=== PATIENT | female | born 1975 | race African-American/Black ===

== ENCOUNTER 2020-02-21 18:55 | Emergency (ER) | payer SELFPAY ==
[~2020-02-21] VITALS: Ht 160 cm; Wt 106.6 kg
[2020-02-21 19:14] VITALS: BP 112/84
[2020-02-21] MEDS ORDERED: Methocarbamol 750mg tab ORAL ONE (19:45)
[2020-02-21] MEDS ORDERED: Ketorolac 30mg Inj IM ONE (19:45)
[2020-02-21] MEDS ORDERED: Bacitracin Oint UD TOPIC ONE (19:45)
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
[2020-02-21] MEDS ORDERED: ROBAXIN-500MG ORAL (20:06)
[2020-02-21] MEDS ORDERED: MUPIROCIN22 GM TOPIC (20:06)
[2020-02-21] MEDS ORDERED: IBU800 MG PO (20:06)
[2020-02-21 20:14] VITALS: BP 112/84
--- NOTE | 2020-02-22 12:52 | Diagnostic Imaging Report ---
Indication: Knee pain status post injury Technique: 3 views of the left knee Comparison: None Findings: Bone mineralization within normal limits. No acute fracture or dislocation is identified. No bone erosion or focal periostitis. No suprapatellar joint effusion. No radiopaque foreign body. Impression: No acute fracture or dislocation.
--- NOTE | 2020-02-22 12:52 | Diagnostic Imaging Report ---
Indication: Knee pain status post injury Technique: 3 views of the right knee Comparison: None Findings: Bone mineralization within normal limits. No acute fracture or dislocation is identified. No bone erosion or focal periostitis. There is a small quadriceps tendon enthesophyte. No suprapatellar joint effusion. No radiopaque foreign body. Impression: No acute fracture or dislocation.
== END 2020-02-21 20:15 | disposition home or self-care (01) ==
LOC: EMR 19:41
DX: S80.02XA Contusion of left knee, initial encounter (principal); S80.01XA Contusion of right knee, initial encounter; E11.9 Type 2 diabetes mellitus without complications; V43.52XA Car driver injured in collision with other type car in traffic accident, initial encounter; Y92.411 Interstate highway as the place of occurrence of the external cause; Z88.5 Allergy status to narcotic agent; Z88.1 Allergy status to other antibiotic agents
CPT/HCPCS: 73562; 96372; 99284; J1885